=== PATIENT | male | born 1960 | race Two or more races ===

== ENCOUNTER 2025-01-07 07:02 | Day surgery (SDC) | payer BC ==
[~2025-01-07] VITALS: Ht 185.4 cm; Wt 90.7 kg
[2025-01-07] VITALS (7 sets, daily range): BP systolic 134–142; BP diastolic 77–89; PULSE 91–97; RESP 13–17; TEMP 97; O2SAT 95–96
[~2025-01-07 07:02] MED LIST: ASPI-325 PO; INSLISPI SC; INSU100I69 SC; MECL-90 PO; METO25TA93 PO; ROSU10TA16 PO; ZOFR4T PO; [UNRECOGNIZED DRUG - CODE] PO
[2025-01-07] MEDS ORDERED: IODIXANOL 320MG/ML 100ML BTL IV ONE (07:20)
[2025-01-07] MEDS ORDERED: ANGIOMAX 250 MG VIAL IV ONE (08:34)
[2025-01-07] MEDS ORDERED: HEPARIN SODIUM (PORCINE) 5000 UNITS/ML 1ML VIAL ONE (08:34)
[2025-01-07] MEDS ORDERED: VERAPAMIL 2.5MG/ML INJ 2ML VIAL IV ONE (08:34)
[2025-01-07] MEDS ORDERED: LIDOCAINE 2%HCL (LOCAL ANESTH.) INJ 20ML MDV ONE (08:35)
[2025-01-07] MEDS ORDERED: MIDAZOLAM HCL 2MG/2ML 2ml VIAL (1mg/ml) ONE (08:35)
[2025-01-07] MEDS ORDERED: SODIUM CHL 0.9% 0 ML ONE (08:35)
[2025-01-07] MEDS ORDERED: fentaNYL CITRATE 100 MCG/2 ML VL ONE (08:35)
[2025-01-07] MEDS ORDERED: NITROGLYCERIN 50MG/250ML 250 ML IV ONE (08:35)
--- NOTE | 2025-01-07 09:54 | DVHOP2 ---
Operative Report - 2 Report Details Date: 01/07/25 Preop Diagnosis: Coronary artery disease Postop Diagnosis: s/p coronary angiogram Surgeon: Safia Branch MD Anesthesiologist: Conscious sedation Anesthesia: Mac, Local Consent: The patient was informed of the risks and benefits of the procedure. These include but are not limited to complications of anesthesia, postoperative infection, incomplete relief of symptoms, recurrence of symptoms, damage to blood vessels, nerves and tendons, deep venous thrombosis, pulmonary embolism and possible need for repeat surgery in the future. Complications: No complications Findings: Mild CAD Indications for Surgery: Chest pain Name of Procedure Performed Left heart catheterization. Bilateral cine coronary angiography. Left ventriculography. Procedure Details Procedure Details: Prior local anesthesia with 2% lidocaine to the right wrist and full informed consent obtained the patient was prepped and draped in usual fashion followed by placement of a six [place] sheath into the radial artery through which a Henrry catheter was used for ventriculography and cannulation of both arms Heather ostia. Fractional flow reserve was then evaluated of the circumflex with a cathworks program. Patient tolerated the procedure well there were no complications. Hemodynamics: Aortic blood pressure was 70. End-diastolic pressure was 12. No gradient across the aortic valve on pullback. Coronary anatomy: The RCA is a large vessel it is dominant. It is normal in its proximal mid and distal segments. PDA and posterolateral branches are normal. Left main is large and normal. Left anterior descending is a large vessel it is normal in its proximal mid segment. There is a 50-60% stenosis of the origin of the distal LAD. Septals and diagonals are normal. The circumflex is a large vessel it has a proximal 75-80% stenosis however fractional flow reserve evaluation FFR of 0.86 consistent with a mild disease. There was no need for revascularization and/or angioplasty. Ventriculography in the CIFUENTES projection shows an EF of 60%. Impression: Normal left ventricular end-diastolic pressure at rest with normal ejection fraction. Mild CAD as noted. Recommendations: Medical therapy is warranted continue risk factor Condition Good Disposition Home Date of Service: Jan 07, 2025 Billing Provider: SAFIA BRANCH Sr., MD Cardiology Common Codes: 89270-JPEKIJG INP/OBS CARE (High) Cardiology Procedure Codes: 30241-ULWN HEART CATH W/INTRA INJ (Fractional flow reserve evaluation of the circumflex coronary artery) SAFIA BRANCH Sr., MD Jan 07, 2025 09:54
== END 2025-01-07 11:38 | disposition home or self-care (01) ==
LOC: CATH 07:02
PROVIDERS: ATTEND Internal Medicine
DX: I25.10 Atherosclerotic heart disease of native coronary artery without angina pectoris (principal); I95.1 Orthostatic hypotension; E78.5 Hyperlipidemia, unspecified; E11.22 Type 2 diabetes mellitus with diabetic chronic kidney disease; N18.32 Chronic kidney disease, stage 3b; E11.65 Type 2 diabetes mellitus with hyperglycemia; E11.51 Type 2 diabetes mellitus with diabetic peripheral angiopathy without gangrene; E26.9 Hyperaldosteronism, unspecified; G47.33 Obstructive sleep apnea (adult) (pediatric); F98.8 Other specified behavioral and emotional disorders with onset usually occurring in childhood and adolescence; Z85.46 Personal history of malignant neoplasm of prostate; Z86.73 Personal history of transient ischemic attack (TIA), and cerebral infarction without residual deficits; Z88.0 Allergy status to penicillin; Z82.49 Family history of ischemic heart disease and other diseases of the circulatory system
CPT/HCPCS: 0523T; 93458; C1769; C1887; C1894; J1644; J2250; J3010; J7030; Q9967; 99152; 99153